=== PATIENT | female | born 1950 | race Caucasian/White ===

== ENCOUNTER 2025-03-21 13:41 | Outpatient (REF) | payer OTHER, SELFPAY ==
--- NOTE | ~2025-03-21 | XR_ITS ---
EXAMINATION: XR LUMBOSACRAL SPINE CLINICAL INFORMATION: M54.50 - Low back pain, unspecified COMPARISON: None available. TECHNIQUE: Lateral views in neutral, flexion and extension position. AP view. FINDINGS: Metallic hardware with transpedicular screws placed bilaterally from L3 to S1. Intervertebral body disc spacer placement at L3-4 and L4-5 level. Dextroconvex rotoscoliosis apex at L1 to. No gross motion during flexion and extension position. Vascular calcifications, aorta.. XR/XR lumbar spine 4V min IMPRESSION: No gross instability. Status post posterior fusion with intact hardware, L3 S1. Scoliosis. Electronically signed by: Kole Chaudhary MD 03/21/2025 03:27 PM EST
== END 2025-03-21 13:42 | disposition home or self-care (01) ==
LOC: HO.HOSX 13:41
PROVIDERS: PCP Family Medicine; Visit Provider Physician Assistant
DX: M54.50 Low back pain, unspecified (principal); G89.29 Other chronic pain; Z98.890 Other specified postprocedural states
CPT/HCPCS: 72110

== ENCOUNTER 2025-03-21 13:41 | Outpatient (AMB) | payer OTHER, SELFPAY ==
--- OUTSIDE RECORDS SUMMARY | 2024-02-23 14:17 | XMS_ITS | Encounter Summary ---
Author Organization [facility] Address [address] [place] [address] Care Team Providers Care Wellness Assistant Name Role Phone Erich Wilson MD Unavailable [phone] Luan Jones MD Unavailable [phone] Mervin Vargas MD Primary Care Provider [phone] Encounter Details Date Type Department Care Team (Late st Contact Info) Description 02/23/2024 3:17 PM EDT Hospital Encounter [facility] [address] [place] [id number] Carlota Webber PA [address], [place] [id number] Social History Tobacco Use Types Packs/Day Years Used Date Smoking Tobacco: Former Cigarettes 0.5 40 0 11/1981 - 11/2021 Smokeless Tobacco: Never Comments:former smoker, .5 p pd x 40 years; quit -2021 has had few from husbands Alcohol Use Standard Drinks/Week Comments Yes 1 (1 standard drink = 0.6 oz pure alcohol) None for past few months, 1 cocktail yesterday. Educated to stop 2 weeks prior to surgery AUDIT-C Answer Date Recorded Q1: How often do you have a drink containing alc ohol? 2-4 times a month 01/24/2022 Q2: How many drinks containi ng alcohol do you have on a typical day when you are drinking? 1 or 2 01/24/2022 Q3: How often do you have si x or more drinks on one occasion? Never 01/24/2022 Comments Unknown Sex and Gender Information Value Date Recorded Sex Assigned at Female 01/08/2025 1:13 PM EDT Legal Sex Female 8:47 AM EST Gender Identity Female 07/05/2021 5:49 PM EST Sexual Orientation Heterosexual (straight) 01/08 1:13 PM EDT documented as of this encounter Plan of Treatment Not on file documented as of this encounter Procedures Procedure Name Priority Date/Time Associated Diagnosis Comments XR CHEST 2 VIEWS STAT 02/23/2024 3:34 PM EDT Acute cough documented in this encounter Results * XR Chest 2 views (02/23/2024 3:34 PM EDT) Anatomical Region Laterality Modality Chest Computed Radiogr aphy 02/23/2024 3:35 PM EDT Impressions 02/23/2024 3:39 PM EDT No acute findings. Narrative 02/23/2024 3:39 PM EDT EXAM: XR CHEST 2 VIEWS on 02/23/2024 3:17 PM CLINICAL HISTORY: acute cough. Eval for pna. COMPARISONS: None TECHNIQUE: Frontal and lateral views of the chest. FINDINGS: There is linear atelectasis or scarring at the left base. No significant pleural effusion or pneumothorax. The cardiomediastinal silhouette is within normal limits. Scoliosis is present. There is partially visualized fixation hardware at the lumbar spine. Procedure Note Heriberto Dalal MD - 02/23/2024 EXAM: XR CHEST 2 VIEWS on 02/23/2024 3:17 PM CLINICAL HISTORY: acute cough. Eval for pna. COMPARISONS: None TECHNIQUE: Frontal and lateral views of the chest. FINDINGS: There is linear atelectasis or scarring at the left base. No significantpleural effusion or pneumothorax. The cardiomediastinal silhouette iswithin normal limits. Scoliosis is present. There is partially visualizedfixation hardware at the lumbar spine. IMPRESSION: No acute findings. us Carlota IBARRA IMG DIAGNOSTIC IMAGING ORDERABLE S Final Result documented in this encounter Visit Diagnoses Not on filedocumented in this encounter Care Teams Wellness Assistant Relationship Specialty Start Date End Date Mervin Vargas MD [address] [facility] [address] [place] [address] PCP - General Internal Medicine 01/01/22 Erich Wilson MD [address] [place] [id number] Physical Medicine and Rehabilitation 08/12/19 Luan Jones MD [address] [place] [id number] Surgery, Orthopedic 10/26/19 documented as of this encounter
--- NOTE | 2025-03-21 13:52 | A.SPINEOV_ITS ---
Vital Signs 03/21/25 13:56 Height 5 ft 8.5 in Weight 153 lb BMI 22.9 Intake Visit Reasons: LBP & left hip Intake Note: Mrs. Hernandez is here today c/o bilateral low back/hip sharp pain. MRI done at [facility]. 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 She is a pleasant 74-year-old female comes in today for evaluation of severe chronic low back pain. She rates her pain as a 5/6 daily, with her pain flaring up to an 8/9 out of 10 with exacerbations. She reports that her back pain is primarily left-sided near the left SI joint, but also will occur in an axial fashion across her back. She states that she attempted to have this treated 2 separate times at [facility]. She had an L4-S1 lumbar fusion in 2019, followed by an L3-4 lumbar fusion in 2021. She reports some modest relief of her low back pain after surgery, however it never fully resolved. She states that her pain is primarily worse with positional changes such as standing up from a seated position. Her pain also flares up with prolonged ambulation/activity. She denies any numbness/tingling/burning associated with the pain, but does state that she has baseline numbness of her toes in the bilateral feet due to a diagnosis of peripheral neuropathy. She has attempted a plethora of nhlz-zei-klgmauw medications including NSAIDs and Tylenol, in his currently prescribed Cymbalta and Neurontin to help mitigate her pain. She has been to multiple rounds of physical therapy for this issue, and also attempted a radiofrequency ablation procedure with a pain management clinic in [place] to try and help treat her pain. Unfortunately these conservative interventions have not been very helpful. PMH: Hx L3-S1 lumbar fusion with posterior instrumentation from L3-S1, interbody spacers L3-4, L4-5. Most recently had L3-4 fusion as extension from previous construct by Dr. Jones in 2021. This surgery was complicated by subsidence of interbody spacer at L4-5. History of appendectomy in 2007, history of small- bowel obstruction in 2019, history of mitral valve prolapse, hypothyroidism, insomnia, hyperlipidemia, obesity, seasonal allergies, peripheral neuropathy. The patient denies any heart attacks, blood clotting, stroke, or pulmonary conditions. She is not on any blood thinners at home. No significant history of infection reported. Social hx: The patient smokes 1/2 pack cigarettes per day. Denies any other substance use. Medications: Levothyroxine, Ambien, atorvastatin, Ozempic, atenolol, Mobic, Cymbalta, Singulair, Zetia, senna, MiraLax, vitamin-D, Neurontin. Allergies: NKDA. Physical exam: The patient has full 5/5 strength in her upper and lower extremities. She ambulates well but does so slightly hunched over. Gait is nonantalgic and non spastic. She rises from a seated position by bracing herself on the chair. She is able to get onto the examination table but does so slowly but without issue. She has no significant sensational deficits to light touch on examination. Her reflexes are slightly diminished in the patella bilaterally but are 2+ normal elsewhere. (+) left side jesse finger test, (-) SI joint compression test. (-) Bilateral straight leg raise, (-) Maxine's, (-) Friedman's, (-) Clonus. Imaging review: MRI of the lumbar spine completed at [facility] on 01/23/2025 shows evidence of L3-S1 lumbar fusion with posterior instrumentation from L3-S1, interbody spacers L3-4, L4-5. There is moderate right-sided and severe left-sided lateral recess stenosis at L2-3. No significant nerve compression appreciated throughout surgical construct L3-S1. Radiology report states that the fusion at L3-4 is new as of 2021. Impression: Diane is a pleasant 74-year-old female who comes in today for evaluation of chronic low back pain that seems to have persisted despite 2 separate lumbar spine fusion surgeries completed at [facility] over the course of the last 5 years. She had several complications after her surgery including what sounds like lucency around her screws indicating they may not have got good purchase or the bone quality was poor, she had a tommy break less than 2 years out from surgery indicating possible pseudoarthrosis causing prolonged tension on her surgical construct. And she also had subsidence of 1 of her interbody spacers. I would like to send her for a CT scan of the lumbar spine to better evaluate her surgical construct in the setting of all of these postoperative complications with her hardware. I did discuss with her that it is possible she may be suffering from left-sided SI joint dysfunction given her increased risk for developing this after having lumbar spine fusion, and the distribution of her pain. I will follow up with her after her CT scan results are read by [facility], she states she would prefer to go there versus having the CT scan done here at [place]. She will drop the disc off with the radiology report when it is complete. Thank you for allowing us to care for your patient. The total time spent with this visit with this patient was 45 minutes reviewing history, physical exam, MRI imaging review, and implementation of treatment plan or further diagnostic testing Med Momin MD,PhD [facility] Orders: Orders XR lumbar spine 4V min Today M54.50 - Low back pain, unspecified Coding Level of Care Code New Pt Level 4 (82595) Diagnoses Lumbago M54.50
[2025-03-21 13:56] VITALS: BMI 22.9
--- OUTSIDE RECORDS SUMMARY | 2025-03-21 16:50 | XMS_ITS | Clinical Summary ---
Author Organization [facility] Address [address] [place] [address] Care Team Providers Care [employer] Remover Name Role Phone Sergey Baez MD Primary Care Provider + Allergies Active Allergy Reactions Criticality Noted Date Comments Nka Medications Medication Sig Dispensed Refills Start Date End Date Status varenicline (CHANTIX) 1 MG tablet 0 11/27/2015 Active zolpidem (AMBIEN) 10 MG tablet TAKE 1 TABLET BY MOUTH AT BEDTIME NEEDED 90 tablet 1 12/03/2017 Active levothyroxine (SYNTHROID, LEVOXYL) tablet 137 mcg TAKE 1 TABLET BY MOUTH EVERY MORNING ON EMPTY STOMACH 90 tablet 1 12/04/2017 Active atorvastatin (LIPITOR) tablet 80 mg TAKE 1 TABLET BY MOUTH ONCE DAILY 90 tablet 1 01/08/2018 Active atenolol (TENORMIN) tablet 25 mg TAKE 1 TABLET BY MOUTH ONCE DAILY 90 tablet 1 01/08/2018 Active Immunizations Name Administration Dates Next Due Influenza Trivalent (Fluzone /Afluria) 5.0mL Multi-dose Vial 04/01/2016 Social History Tobacco Use Types Packs/Day Years Used Date Smoking Tobacco: Every Day Alcohol Use Standard Drinks/Week Comments Yes 1 (1 standard drink = 0.6 oz pur e alcohol) Sex and Gender Information Value Date Recorded Sex Assigned at Not on file Gender Identity Not on file Sexual Orientation Not on file Job Start Date Occupation Industry Not on file Not on file Not on file Last Filed Vital Signs Vital Sign Reading Time Taken Comments Blood Pressure 116/62 02/06/2017 12:58 PM EDT Pulse 72 02/06/2017 12:58 PM EDT Temperature - - Respiratory Rate - - Oxygen Saturation - - Inhaled Oxygen Concentration - - Weight 77.1 kg (170 lb) 02/06/2017 12:58 PM EDT Height - - Body Mass Index - - Plan of Treatment Health Maintenance Due Date Last Done Comments Hepatitis C Screening 1950 COVID-19 Vaccine (#1) 01/07/1951 Pneumococcal Vaccine (1 of 2 - PCV) 1955 Depression Screening 1961 Preventative Health Evaluation 1967 DTap / Tdap / Td (1 - Tdap) 1968 Shingrix-Zoster Vaccine (1 of 2) 1999 Fall Risk Assessment 2014 Osteoporosis Screening (DEXA Scan) 07/10/20142004 Colon Cancer Screening (Colonoscopy) 11/05/2014 11/05/2004 RSV Adult > 60+ Yrs or Pregn ant (1 - 1-dose 75+ series) 2024 Influenza Vaccine (#1) 2025 04/01/2016 Hepatitis B Vaccines Aged Out No long er eligible based on patient's age to complete this topic RSV Ped < 20 months Aged Out No longe r eligible based on patient's age to complete this topic Care Teams [employer] Remover Relationship Specialty Start Date End Date Sergey Baez MD [address] [place], [place] [address] PCP - General Internal Medicine 02/06/17
--- OUTSIDE RECORDS SUMMARY | 2025-03-21 16:50 | XMS_ITS ---
[facility] Name [facility] Organization Unknown Results Test Name/Text Value Interpretation Date Range Source TSH 1.52 uIU/mL Normal 02/14/2025 0.55 - 4.78 [facility] T4 FREE 1.55 ng/dL Normal 02/14/2025 0.89 - 1.76 [facility] MH T4 FREE 1.52 ng/dL Normal 12/09/2024 0.89 - 1.76 [facility] MH TSH 1.52 uIU/mL Normal 12/09/2024 0.55 - 4.78 CTP MM GLYCOHEMOGLOBIN (A1C) 6.0 % Above high normal 10/13/2024 4 - 5.6 [facility] VITAMIN D (25-HYDROXY) 52.0 ng/mL Normal 10/13/2024 30 - 100 [facility] LDL DIRECT MEASUREMENT 74.0 mg/dL Normal 10/13/2024 - 99 [facility] URIC ACID 4.4 mg/dL Normal 10/13/2024 3.7 - 9.2 [facility] GFRE 47.0 Below low normal 10/13/2024 60 - CT PMHM TSH 2.74 uIU/mL Normal 10/13/2024 0.55 - 4.78 CTP MMH MAGNESIUM 2.4 mg/dL Normal 10/13/2024 1.6 - 2.6 [facility] CHOLESTEROL 139.0 mg/dL Normal 10/13/2024 - 200 [facility]P MMH LDL 74.0 mg/dL Normal 10/13/2024 - 160 [facility] HDL 46.0 mg/dL Below low normal 10/13/2024 60 - C [facility] TRIGLYCERIDE 94.0 mg/dL Normal 10/13/2024 - 150 [facility] T4 FREE 1.39 ng/dL Normal 10/13/2024 0.89 - 1.76 [facility] MH CHLORIDE 110.0 mmol/L Above high normal 10/13/2024 98 - 107 [facility] BILIRUBIN,TOTAL 0.5 mg/dL Normal 10/13/2024 0.3 - 1.2 [facility]P MMH A/G RATIO 2.7 g/dL Normal 10/13/2024 [facility] BUN/CREAT.RATIO 17.8 Normal 10/13/2024 [facility]P [facility] ALT (SGPT) 31.0 U/L Normal 10/13/2024 10 - 49 [facility] ALBUMIN 4.6 g/dL Normal 10/13/2024 3.2 - 4.8 [facility] GLUCOSE 107.0 mg/dL Above high normal 10/13/2024 74 - 106 [facility] SODIUM 143.0 mmol/L Normal 10/13/2024 136 - 145 CTPM ALKALINE PHOSPHATASE 62.0 U/L Normal 10/13/2024 45 - 129 [facility] PROTEIN, TOTAL 6.3 g/dL Normal 10/13/2024 5.7 - 8.2 [facility] CREATININE 1.18 mg/dL Above high normal 10/13/2024 0.55 - 1. 02 [facility] CO2 29.0 mmol/L Normal 10/13/2024 20 - 31 [facility] H BUN 21.0 mg/dL Normal 10/13/2024 9 - 23 [facility] POTASSIUM SERUM 5.2 mmol/L Above high normal 10/13/2024 3.5 - 5.1 [facility] GLOBULIN 1.7 g/dL Below low normal 10/13/2024 2.2 - 3.[facility] 25.0 U/L Normal 10/13/2024 0 - 34 [facility] CALCIUM 9.6 mg/dL Normal 10/13/2024 8.7 - 10.4 [facility] PATIENT FASTING? YES Normal 10/13/2024 CT [facility] IMMATURE GRANULOCYTES 0.0 % Normal 10/13/2024 0 - 0.4 5 [facility] MCHC 32.1 g/dL Normal 10/13/2024 31 - 36 [facility] ABSOLUTE IMMATURE GRANULOCYTES 0.0 K/uL Normal 10/13/2024 0 - 0.3 [facility] MCH 34.0 PG Normal 10/13/2024 27 - 34 [facility] NUCLEATED RBC 0.0 % Normal 10/13/2024 0 - 0.2 [facility]H ABSOLUTE GRANULOCYTES 3.0 K/uL Normal 10/13/2024 2.2 - 7 .3 [facility] RBC 4.42 M/uL Normal 10/13/2024 4 - 5.4 [facility] PLATELET COUNT 206.0 K/uL Normal 10/13/2024 150 - 480 [facility] ABSOLUTE NUCLEATED RBC 0.0 K/uL Normal 10/13/2024 0 - 0. 012 [facility] HGB 14.8 g/dL Normal 10/13/2024 12.1 - 15.7 [facility] H HCT 46.1 % Above high normal 10/13/2024 36 - 46 C [facility] MCV 104.0 fL Above high normal 10/13/2024 83 - 102 C [facility] GRANULOCYTES 54.0 % Normal 10/13/2024 23 - 78 [facility] MH ABSOLUTE MONOS 0.7 K/uL Normal 10/13/2024 0.2 - 1.5 CTPM HMMH LYMPHS 28.0 % Normal 10/13/2024 16 - 50 [facility] WBC 5.6 K/uL Normal 10/13/2024 3.7 - 10.3 [facility] ABSOLUTE EOS 0.2 K/uL Normal 10/13/2024 0 - 0.7 [facility] MH ABSOLUTE LYMPHS 1.6 K/uL Normal 10/13/2024 1.5 - 4.9 CTP MHMMH RDW 13.1 % Normal 10/13/2024 11.1 - 13.3 [facility] H EOSINOPHILS 4.0 % Normal 10/13/2024 0 - 6 [facility] H MPV 11.0 fL Normal 10/13/2024 8 - 12 [facility] BASOPHILS 1.0 % Normal 10/13/2024 0 - 2 [facility] MONOCYTES 12.0 % Normal 10/13/2024 0 - 12 [facility] ABSOLUTE BASO 0.1 K/uL Normal 10/13/2024 0 - 0.2 [facility] MMH TSH 2.0 uIU/mL Normal 07/26/2024 0.55 - 4.78 [facility] MH T4 FREE 1.51 ng/dL Normal 07/26/2024 0.89 - 1.76 [facility] TSH 2.21 uIU/mL Normal 06/15/2024 0.55 - 4.78 [facility]P MMH T4 FREE 1.18 ng/dL Normal 06/15/2024 0.89 - 1.76 [facility] T4 FREE 1.13 ng/dL Normal 04/19/2024 [facility].89 [facility] T[facility] 3.41 uIU/mL Normal 04/19/2024 0.55 - 4.78 CTP MM LDL DIRECT MEASUREMENT 70.0 mg/dL Normal 04/19/2024 0 - 9 9 [facility] BILIRUBIN,TOTAL 0.4 mg/dL Normal 04/19/2024 0.3 - 1.2 CTP MMH ALKALINE PHOSPHATASE 58.0 U/L Normal 04/19/2024 45 - 129 [facility] GLOBULIN 2.3 g/dL Normal [facility] PROTEIN, TOTAL 6.4 g/dL Normal 04/19/2024 5.7 - 8.2 [facility] ALBUMIN 4.1 g/dL Normal 04/19/2024 3.2 - 4.8 [facility] ALT (SGPT) 36.0 U/L Normal 04/19/2024 10 - 49 [facility] A/G RATIO 1.8 g/dL Normal [facility]CREAT.RAT[facility] 16.5 Normal 04/19/2024 [facility] AST (SGOT) 25.0 U/L Normal 04/19/2024 0 - 34 [facility] BUN 18.0 mg/dL Normal 04/19/2024 9 - 23 [facility] CREATININE 1.09 mg/dL Above high normal 04/19/2024 0.55 - 1. 02 [facility] GLUCOSE 101.0 mg/dL Normal 04/19/2024 74 - 106 [facility] H CALCIUM 9.3 mg/dL Normal 04/19/2024 8.7 - 10.4 [facility] CO2 29.0 mmol/L Normal 04/19/2024 20 - 31 [facility] H POTASSIUM SERUM 4.8 mmol/L Normal 04/19/2024 3.5 - 5.1 CT HMM[facility] SODIUM 143.0 mmol/L Normal 04/19/2024 136 - 145 [facility] CHLORIDE 108.0 mmol/L Above high normal 04/19/2024 98 - 107 [facility] PATIENT FASTING? YES Normal 04/19/2024 CT PM[facility] URIC ACID 4.0 mg/dL Normal 04/19/2024 3.7 - 9.2 [facility] VITAMIN D (25-HYDROXY) 67.0 ng/mL Normal 04/19/2024 30 - 100 [facility] CHOLESTEROL 141.0 mg/dL Normal 04/19/2024 0 - 200 [facility]P MMH LDL 66.0 mg/dL Normal 04/19/2024 - 160 [facility] TRIGLYCERIDE 119.0 mg/dL Normal 04/19/2024 15 - 149 [facility] HDL 51.0 mg/dL Normal 04/19/2024 40 - 60 [facility] MAGNESIUM 2.33 mg/dL Normal 04/19/2024 1.6 - 2.6 [facility]MM GLYCOHEMOGLOBIN (A1C) 5.9 % Above high normal 04/19/2024 4 - 5.6 [facility] RDW 13.2 % Normal 04/19/2024 11.1 - 13.3 [facility] H MCH 34.0 PG Normal 04/19/2024 27 - 34 [facility] WBC 6.9 K/uL Normal 04/19/2024 3.7 - 10.3 [facility] ABSOLUTE EOS 0.3 K/uL Normal 04/19/2024 [facility] LY[facility] 2.1 K/uL Normal 04/19/2024 1.5 - 4.9 CTP MM MPV 11.0 fL Normal 04/19/2024 8 - 12 [facility] ABSOLUTE GRANULOCYTES 3.7 K/uL Normal 04/19/2024 2.2 - 7 .3 [facility] ABSOLUTE BASO 0.1 K/uL Normal 04/19/2024 0 - 0.2 [facility] MMH MCHC 32.7 g/dL Normal 04/19/2024 31 - 36 [facility] HCT 44.3 % Normal 04/19/2024 36 - 46 [facility] BASOPHILS 1.0 % Normal 04/19/2024 0 - 2 [facility] IMMATURE GRANULOCYTES 1.0 % Above high normal 04/19/2024 0 - 0.45 [facility] MCV 105.0 fL Above high normal 04/19/2024 83 - 102 C [facility] GRANULOCYTES 53.0 % Normal 04/19/2024 23 - 78 [facility] MH LYMPHS 30.0 % Normal 04/19/2024 16 - 50 [facility] MONOCYTES 11.0 % Normal 04/19/2024 0 - 12 [facility] RBC 4.24 M/uL Normal 04/19/2024 4 - 5.4 [facility] NUCLEATED RBC 0.0 % Normal 04/19/2024 0 - 0.2 [facility] MMH ABSOLUTE NUCLEATED RBC 0.0 K/uL Normal 04/19/2024 0 - 0. 012 [facility] EOSINOPHILS 4.0 % Normal 04/19/2024 0 - 6 [facility] H ABSOLUTE IMMATURE GRANULOCYTES 0.0 K/uL Normal 04/19/2024 0 - 0.3 [facility] ABSOLUTE MONOS 0.8 K/uL Normal 04/19/2024 0.2 - 1.5 CTPM HMMH PLATELET COUNT 203.0 K/uL Normal 04/19/2024 150 - 480 CTP MHMMH HGB 14.5 g/dL Normal 04/19/2024 12.1 - 15.7 [facility]MM H TSH 0.1 uIU/mL Below low normal 12/31/2023 0.35 - 4.5 [facility] T4 FREE 1.55 ng/dL Above high normal 12/31/2023 0.6 - 1.38 [facility] T4 FREE 1.5 ng/dL Above high normal 11/09/2023 0.6 - 1.38 [facility] TSH 0.07 uIU/mL Below low normal 11/09/2023 0.35 - 4.5 [facility] LIPASE 28.0 U/L Normal 10/19/2023 13 - 75 [facility] GFRE 57.0 Below low normal 10/19/2023 60 - CT PMHMM[facility] A/G RATIO 1.3 g/dL Normal 10/19/2023 [facility] BUN/CREAT.RATIO 18.8 Normal 10/19/2023 CTP MHMMH POTASSIUM SERUM 4.1 mmol/L Normal 10/19/2023 3.5 - 5.1 CT PMHMMH GLUCOSE 78.0 mg/dL Normal 10/19/2023 74 - 100 [facility] CHLORIDE 105.0 mmol/L Normal 10/19/2023 98 - [facility] CREATININE 1.01 mg/dL Normal 10/19/2023 0.55 - 1.3 [facility] CO2 25.0 mmol/L Normal 10/19/2023 21 - [facility] ALB[facility] 3.7 g/dL Normal 10/19/2023 3.4 - 5 [facility] AST (SGOT) 13.0 U/L Below low normal 10/19/2023 15 - 37 [facility] ALT (SGPT) 22.0 U/L Normal 10/19/2023 12 - 78 [facility] GLOBULIN 2.8 g/dL Normal 10/19/2023 2.4 - 4.2 [facility] PROTEIN, TOTAL 6.5 g/dL Normal 10/19/2023 6.4 - 8.2 [facility] BILIRUBIN,TOTAL 0.7 mg/dL Normal 10/19/2023 0.2 - 1 [facility] ALKALINE PHOSPHATASE 68.0 U/L Normal 10/19/2023 50 - 136 [facility] BUN 19.0 mg/dL Above high normal 10/19/2023 7 - 18 [facility] SODIUM 138.0 mmol/L Normal 10/19/2023 136 - 145 [facility] PATIENT FASTING? UNKNOWN Normal 10/19/2023 CT [facility] WBC 8.6 K/uL Normal 10/19/2023 3.7 - 10.3 [facility] ABSOLUTE NUCLEATED RBC 0.0 K/uL Normal 10/19/2023 0 - 0. 012 [facility] NUCLEATED RBC 0.0 % Normal 10/19/2023 0 - [facility] ABSOLUTE IMMATURE GRANULOCYTES 0.0 K/uL Normal 10/19/2023 0 - 0.3 [facility] RDW 12.0 % Normal 10/19/2023 11.1 - 13.[facility] MCHC 34.1 g/dL Normal 10/19/2023 31 - 36 [facility] BASOPHILS 1.0 % Normal 10/19/2023 0 - 2 [facility] GRANULOCYTES 67.0 % Normal 10/19/2023 23 - 78 [facility] MH IMMATURE GRANULOCYTES 1.0 % Above high normal 10/19/2023 0 - 0.45 [facility] ABSOLUTE BASO 0.1 K/uL Normal 10/19/2023 0 - 0.2 [facility] MMH MCV 98.0 fL Significant cardenas ge down 10/19/2023 83 - 102 [facility] LYMPHS 21.0 % Normal 10/19/2023 16 - 50 [facility] HCT 41.4 % Normal 10/19/2023 36 - 46 [facility] ABSOLUTE GRANULOCYTES 5.8 K/uL Normal 10/19/2023 2.2 - 7 .3 [facility] MCH 33.0 PG Normal 10/19/2023 27 - 34 [facility] MONOCYTES 10.0 % Normal 10/19/2023 0 - 12 [facility] ABSOLUTE LYMPHS 1.8 K/uL Normal 10/19/2023 1.5 - 4.9 CTP MHMMH ABSOLUTE MONOS 0.9 K/uL Normal 10/19/2023 0.2 - 1.5 CTPM HMMH RBC 4.22 M/uL Normal 10/19/2023 4 - 5.4 [facility] PLATELET COUNT 195.0 K/uL Normal 10/19/2023 150 - 480 CTP MHMMH MPV 10.0 fL Normal 10/19/2023 8 - 12 [facility] ABSOLUTE EOS 0.1 K/uL Normal 10/19/2023 0 - 0.7 [facility] MH EOSINOPHILS 2.0 % Normal 10/19/2023 0 - 6 [facility]PM[facility]MM H HGB 14.1 g/dL Normal 10/19/2023 12.1 - 15.7 [facility]PM[facility]MM H T4 FREE 1.14 ng/dL Normal 08/12/2023 0.6 - 1.38 [facility]MM H TSH 5.78 uIU/mL Above high normal 08/12/2023 0.35 - 4. 5 [facility] MAGNESIUM 2.5 mg/dL Above high normal 04/15/2023 1.8 - 2.4 C TPMHMMH VITAMIN D (25-HYDROXY) 76.3 ng/mL Normal 04/15/2023 30 - 100 [facility] POTASSIUM SERUM 4.9 mmol/L Normal 04/15/2023 3.5 - 5.1 CT PM[facility]MM[facility] BILIRUBIN,TOTAL 0.5 mg/dL Normal 04/15/2023 0.2 - 1 CTP MMH A/G RATIO 1.5 g/dL Normal 04/15/2023 [facility] CHLORIDE 106.0 mmol/L Normal 04/15/2023 98 - [facility] GLOBULIN 2.5 g/dL Normal 04/15/2023 2.4 - 4.2 [facility] ALT (SGPT) 46.0 U/L Normal 04/15/2023 12 - 78 [facility] CO2 30.0 mmol/L Normal 04/15/2023 21 - 32 [facility]PMM H SODIUM 142.0 mmol/L Normal 04/15/2023 136 - [facility] PROTEIN, TOTAL 6.3 g/dL Below low normal 04/15/2023 6.4 - 8 .2 [facility] AST (SGOT) 20.0 U/L Normal 04/15/2023 15 - 37 [facility] ALKALINE PHOSPHATASE 57.0 U/L Normal 04/15/2023 50 - 136 [facility] GLUCOSE 102.0 mg/dL Above high normal 04/15/2023 74 - 100 [facility] BUN/CREAT.RATIO 18.1 Normal 04/15/2023 [facility] BUN 21.0 mg/dL Above high normal 04/15/2023 7 - 18 [facility] CALCIUM 9.2 mg/dL Normal 04/15/2023 8.5 - 10.1 [facility] CREATININE 1.16 mg/dL Normal 04/15/2023 0.55 - 1.3 [facility] ALBUMIN 3.8 g/dL Normal 04/15/2023 3.4 - 5 [facility]ST[facility]? YES Normal 04/15/[facility] URIC ACID 3.9 mg/dL Normal 04/15/2023 2.6 - 6 CTPMM TSH 0.71 uIU/mL Normal 04/15/2023 0.35 - 4.5 [facility] LDL DIRECT MEASUREMENT 62.0 mg/dL Normal 04/15/2023 - 160 [facility] TRIGLYCERIDE 81.0 mg/dL Normal 04/15/2023 - 150 [facility] HDL 50.0 mg/dL Normal 04/15/2023 - [facility] LDL 57.0 Normal 04/15/2023 0 - 129 [facility] CHOLESTEROL 123.0 mg/dL Normal 04/15/2023 - 200 [facility] MMH GFRE 49.0 Below low normal 04/15/2023 60 - CT PMHMMH T4 FREE 1.2 ng/dL Normal 04/15/2023 0.6 - 1.38 [facility] GLYCOHEMOGLOBIN (A1C) 5.8 % Above high normal 04/15/2023 4 - 5.6 [facility] ABSOLUTE GRANULOCYTES 4.1 K/uL Normal 04/15/2023 2.2 - 7 .3 [facility] MONOCYTES 11.0 % Normal 04/15/2023 0 - 12 [facility] MPV 11.0 fL Normal 04/15/2023 8 - 12 [facility] LYMPHS 27.0 % Normal 04/15/2023 16 - 50 [facility] EOSINOPHILS 3.0 % Normal 04/15/2023 0 - 6 [facility]MM H IMMATURE GRANULOCYTES 0.0 % Normal 04/15/2023 0 - 0.4 5 [facility] GRANULOCYTES 58.0 % Normal 04/15/2023 23 - 78 [facility] MH MCHC 32.9 g/dL Normal 04/15/2023 31 - 36 [facility] MCH 34.0 PG Normal 04/15/2023 27 - 34 [facility] WBC 7.0 K/uL Normal 04/15/2023 3.7 - 10.3 [facility] BASOPHILS 1.0 % Normal 04/15/2023 0 - 2 [facility] HCT 41.7 % Normal 04/15/2023 36 - 46 [facility] HGB 13.7 g/dL Normal 04/15/2023 12.1 - 15.7 CTPMHMM H PLATELET COUNT 188.0 K/uL Normal 04/15/2023 150 - 480 CTP MHMMH ABSOLUTE IMMATURE GRANULOCYTES 0.0 K/uL Normal 04/15/2023 0 - 0.3 [facility] ABSOLUTE BASO 0.1 K/uL Normal 04/15/2023 0 - 0.2 [facility] MMH MCV 105.0 fL Above high normal 04/15/2023 83 - 102 C [facility]MMH RBC 3.99 M/uL Below low normal 04/15/2023 4 - 5.4 CT [facility] ABSOLUTE MONOS 0.8 K/uL Normal 04/15/2023 0.2 - 1.5 CTPM HMMH ABSOLUTE EOS 0.2 K/uL Normal 04/15/2023 0 - 0.7 [facility] MH RDW 12.1 % Normal 04/15/2023 11.1 - 13.3 [facility]PMHMM H NUCLEATED RBC 0.0 % Normal 04/15/2023 0 - 0.2 [facility] MMH ABSOLUTE LYMPHS 1.9 K/uL Normal 04/15/2023 1.5 - 4.9 CTP MHMMH ABSOLUTE NUCLEATED RBC 0.0 K/uL Normal 04/15/2023 0 - 0. 012 [facility] History of Medication Use Medication Directions Dispensed Refills Start Date End Date Stat albuterol (PROVENTIL HFA; VENTOLIN HFA) 108 (90 Base) MCG/ACT inhaler Inhale 2 puffs every 4 (four) hours as needed for wheezing or shortness of breath. 02/23/2024 active predniSONE (DELTASONE) 20 MG tablet Take 2 tablets (40 mg total) by mouth daily. 02/23/2024 active zolpidem (AMBIEN) 10 MG tablet 02/22/2024 active gabapentin (NEURONTIN) 300 MG capsule Take 400 mg by mouth 4 (four) times a day. 12/21/2023 active meloxicam (MOBIC) 15 MG tablet Take 15 mg by mouth. with food 12/21/2023 active montelukast (SINGULAIR) 10 MG tablet Take 10 mg by mouth nightly. 12/07/2023 active valACYclovir (VALTREX) 1000 MG tablet Take 1 tablet (1,000 mg total) by mouth 2 (two) times a day. 07/02/2023 2023 active acetaminophen (TYLENOL) 325 MG tablet Take 3 tablets (975 mg total) by mouth every 6 (six) hours. 01/26/2022 active aspirin enteric coated (aspirin enteric coated) 81 MG EC tablet Take 1 tablet (81 mg total) by mouth 2 (two) times a day. 01/26/2022 active lactulose (ENULOSE) 10 gm/15 mL solution Take 30 mL (20 g total) by mouth every 4 (four) hours as needed (if no bowel movment by day 3). 01/26/2022 active methocarbamol (ROBAXIN) 750 MG tablet Take 1 tablet (750 mg total) by mouth 4 times daily (every 6 hours) as needed for muscle spasms. 01/26/2022 active oxyCODONE (ROXICODONE) 5 MG immediate release tablet Take 1-2 tablets (5-10 mg total) by mouth every 3 (three) hours as needed for severe pain or moderate pain. Max Daily Amount: 80 mg 01/26/2022 active polyethylene glycol (miraLAx) 17 g packet Take 1 packet (17 g total) by mouth daily as needed for constipation. 01/26/2022 active senna-docusate (SENNA-S) 8.6-50 MG Take 2 tablets by mouth nightly. 01/26/2022 active OMEprazole (PriLOSEC) 40 MG capsule TAKE 1 CAPSULE BY MOUTH DAILY, 1/2 HOUR BEFORE BREAKFAST 11/13/2021 active Ozempic, 1 MG/DOSE, 4 MG/3ML Solution Pen-injector prefilled pen injection Inject 1 mg under the skin once a week. 09/09/2021 active atenolol (TENORMIN) 25 MG tablet Take 25 mg by mouth every morning. 07/15/2019 active atorvastatin (LIPITOR) 80 MG tablet Take 80 mg by mouth nightly. 07/15/2019 active CALCIUM-VITAMIN D PO Take 1 tablet by mouth every morning. active docusate sodium (COLACE) 100 MG capsule Take 100 mg by mouth 2 (two) times a day as needed for constipation. active levothyroxine (SYNTHROID, LEVOTHROID) 100 MCG tablet Take 100 mcg by mouth daily on an empty stomach. active levothyroxine (SYNTHROID, LEVOTHROID) 125 MCG tablet Take 125 mcg by mouth daily on an empty stomach. 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 ProblemAct [facility] Chronic bilateral low back pain with bilateral sciatica active 2021-12-03 ProblemAct [facility] Spinal stenosis active 2022-01-24 ProblemAct [facility] History of lumbar fusion active 2021-12-03 ProblemAct [facility] Spondylosis of cervical region without myelopathy or radiculopathy active EncounterDiagnosisAct [facility] 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 02/14/2025 Ambulatory [place] [facility] 01/10/2025 Ambulatory [place] [facility] 01/10/2025 [facility] 12/09/2024 [facility] 10/13/2024 [facility]. 07/26/2024 [facility] 06/14/2024 Ambulatory HYPERLIPIDEMIA HYPERLIPIDEMIA [facility] 05/05/2024 [facility], [facility]. 04/19/2024 Ambulatory [place] [facility] 02/23/2024 Ambulatory Other Other [place] [facility] 02/23/2024 Ambulatory SCREENING FOR BREAST CA SCREENING FOR BREAST CA [facility] 01/28/2024 [facility] 12/31/2023 [facility], [facility]. 11/09/2023 Emergency SEVERE STOMACH PAIN/NO BM/NO GAS SEVERE STOMACH PAIN/NO BM/NO GAS [facility]. 10/18/2023 [facility], [facility]. 08/12/2023 Ambulatory Other herpesviral infection Other herpesviral infection [place] [facility] 07/02/2023 [facility] 04/15/2023 [facility], [facility]. 03/05/2023 Ambulatory Low back pain, unspecified Low back pain, unspecified [facility] 01/23/2023 Ambulatory Low back pain, unspecified Low back pain, unspecified [facility] 01/23/2023 [facility] 10/29/2022 [facility] 08/15/2022 [facility] 06/18/2022 [facility] 04/29/2022 Ambulatory [facility] 01/27/2022 Inpatient Spinal stenosis, lumbar region with neurogenic claudication [facility] 01/24/2022 Ambulatory Encounter for ot her preprocedural examination [facility] 01/22/2022 Ambulatory Spinal stenosis, lumbar region with neurogenic claudication [facility] 01/06/2022 Ambulatory Unspecified frac ture of unspecified lumbar vertebra, subsequent encounter for fracture with nonunion [facility] 12/17/2021 Ambulatory Lumbago with sciatica, left side [facility] 12/03/2021 Care Team Organization Name Specialty Phone Email Start Date End [facility] te [facility] 03/09/2025 [facility] 03/07/2025 [facility] 03/07/2025 [facility] MERVIN CELIS [facility] 03/06/2025 [facility] 12/10/2024 03/15/2025 [facility] 09/28/2024 025 [facility] Logger ([facility]) VIMAL Primary Care 09/14/2024 [facility] Mervin Celis [facility] 01/26/2024 09/27/2024 [facility] M[facility]in [facility] 01/26/2024 [facility]in Cel[facility] Primary [facility] 01/23/2023 [facility] 06/18/2022 023 [facility] Vimal Jeffries Primary Care 04/29/2022 03/15/2025 [facility] Mervin Celis Primary Care 03/28/2022 01/04/20 24 [facility] Charlie Frank Primary [facility] 01/24/2022 [facility] Charlie Frank [facility] 12/03/2021 [facility] Mervin Celis Primary Care 12/03/2021 01/24/2022
--- OUTSIDE RECORDS SUMMARY | 2025-03-21 16:50 | XMS_ITS | Encounter Summary ---
Author Organization [facility] Address [address] [place] [address] Care Team Providers Care Rail Loader Name Role Phone Erich Wilson MD Unavailable [phone] Luan Jones MD Unavailable [phone] Mervin Vargas MD Primary Care Provider [phone] Encounter Details Date Type Department Care Team (Late st Contact Info) Description 01/10/2025 Scanned Document [facility] [address] [place] [id number] Erich Wilson MD [address] [place] [address] [address] [place], [place] [id number] Social History Tobacco Use Types Packs/Day Years [...] on file documented as of this encounter Visit Diagnoses Not on filedocumented in this encounter Care Teams Rail Loader Relationship Specialty Start Date End Date Mervin Vargas MD [address] [place], [place] [id number] PCP - General Internal Medicine 01/01/22 Erich Wilson MD [address] [place] [address] Physical Medicine and Rehabilitation 08/12/19 Luan Jones MD [address] [place] [address] Surgery, Orthopedic 10/26/19 documented as of this encounter
--- OUTSIDE RECORDS SUMMARY | 2025-03-21 16:50 | XMS_ITS | Clinical Summary ---
Author Organization [facility] Address [address] [place] [address] Care Team Providers Care Health Information Managers Name Role Phone Erich Wilson MD Unavailable [phone] Luan Jones MD Unavailable [phone] Mervin Vargas MD Primary Care Provider [phone] Allergies Active Allergy Reactions Criticality Noted Date Comments Nickel Rash/Dermatitis Low 10/26/2019 Medications atenolol (TENORMIN) 25 MG tablet Take 25 mg by mouth every morning. 0 Active atorvastatin (LIPITOR) 80 MG tablet Take 80 mg by mouth nightly. 0 Active Ozempic, 1 MG/DOSE, 4 MG/3ML Solution Pen-injector prefilled pen injectionIndicati ons:Weight Loss Inject 1 mg under the skin once a week. 2 Active OMEprazole (PriLOSEC) 40 MG capsule TAKE 1 CAPSULE BY MOUTH DAILY, 1/2 HOUR BEFORE BREAKFAST 2 Active docusate sodium (COLACE) 100 MG capsule Take 100 mg by mouth 2 (two) times a day as needed for constipation. Active CALCIUM-VITAMIN D PO Take 1 tablet by mouth every morning. Active levothyroxine (SYNTHROID, LEVOTHROID) 125 MCG tablet Take 125 mcg by mouth daily on an empty stomach. Take morning of surgery Active polyethylene glycol (miraLAx) 17 g packetIndications :Spinal stenosis of lumbar region with neurogenic claudication Take 1 packet (17 g total) by mouth daily as needed for constipation. 14 packet 2 Active acetaminophen (TYLENOL) 325 MG tabletIndications :Spinal stenosis of lumbar region with neurogenic claudication Take 3 tablets (975 mg total) by mouth every 6 (six) hours. 144 tablet 2 Active lactulose (ENULOSE) 10 gm/15 mL solutionIndicatio ns:Spinal stenosis of lumbar region with neurogenic claudication Take 30 mL (20 g total) by mouth every 4 (four) hours as needed (if no bowel movment by day 3). 240 mL 2 Active methocarbamol (ROBAXIN) 750 MG tabletIndications :Spinal stenosis of lumbar region with neurogenic claudication Take 1 tablet (750 mg total) by mouth 4 times daily (every 6 hours) as needed for muscle spasms. 40 tablet 2 Active oxyCODONE (ROXICODONE) 5 MG immediate release tabletIndications :Spinal stenosis of lumbar region with neurogenic claudication Take 1-2 tablets (5-10 mg total) by mouth every 3 (three) hours as needed for severe pain or moderate pain. Max Daily Amount: 80 mg 42 tablet 2 Active senna-docusate (SENNA-S) 8.6-50 MGIndications:Spi nal stenosis of lumbar region with neurogenic claudication Take 2 tablets by mouth nightly. 60 tablet 2 Active aspirin enteric coated (aspirin enteric coated) 81 MG EC tabletIndications :Spinal stenosis of lumbar region with neurogenic claudication Take 1 tablet (81 mg total) by mouth 2 (two) times a day. 56 tablet 2 Active gabapentin (NEURONTIN) 300 MG capsule Take 400 mg by mouth 4 (four) times a day. 4 Active levothyroxine (SYNTHROID, LEVOTHROID) 100 MCG tablet Take 100 mcg by mouth daily on an empty stomach. Active zolpidem (AMBIEN) 10 MG tablet 4 Active montelukast (SINGULAIR) 10 MG tablet Take 10 mg by mouth nightly. 4 Active meloxicam (MOBIC) 15 MG tablet Take 15 mg by mouth. with food 4 Active albuterol (PROVENTIL HFA; VENTOLIN HFA) 108 (90 Base) MCG/ACT inhalerIndication s:Acute bronchitis, unspecified organism Inhale 2 puffs every 4 (four) hours as needed for wheezing or shortness of breath. 1 each 4 Active predniSONE (DELTASONE) 20 MG tabletIndications :Acute bronchitis, unspecified organism Take 2 tablets (40 mg total) by mouth daily. 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 Encounters Date Type Department Care Team Description 03/07/2025 1:45 PM EDT Office Visit Orthopedic [address] [phone] Erich Wilson MD Degeneration of intervertebral disc of lumbosacral region with discogenic back pain (Primary Dx); Spondylosis of cervical region without myelopathy or radiculopathy 01/10/2025 10:40 AM EDT Ancillary Procedure Orthopedic [address] [phone] 01/10/2025 10:30 AM EDT Consult Orthopedic [address] [phone] Erich Wilson MD Degeneration of intervertebral disc of lumbosacral region with discogenic back pain (Primary Dx); Hip pain, right; Hip pain, left; Spondylosis of cervical region without myelopathy or radiculopathy; Lumbar pain 01/10/2025 Scanned Document [facility] [address] [place] [address] Erich Wilson MD from Last 3 Months Family History Medical History Relation Name Comments No Known Problems Daughter Heart attack Father Heart disease Father Lung cancer Mother Arthritis Sister No Known Problems Son Relation Name Status Comments Daughter Alive Father Mother Sister Alive Son Alive Social History Tobacco Use Types Packs/Day Years Used Date Smoking Tobacco: Former Cigarettes 0.5 40 0 11/1981 - 11/2021 Smokeless Tobacco: Never Tobacco Cessation:Counseling Given: Yes Comments:former smoker, .5 ppd x 40 years; quit has had few from husbands Alcohol Use [...] Orientation Heterosexual (straight) 01/08 1:13 PM EDT Last Filed Vital Signs Vital Sign Reading Time Taken Comments Blood Pressure 116/72 02/23/2024 3:09 PM EDT Pulse 78 02/23/2024 3:09 PM EDT Temperature 36.6 C (97.9 F) 02/23/2024 3:09 PM EDT Respiratory Rate 16 02/23/2024 3:09 PM EDT Oxygen Saturation 94% 02/23/2024 3:09 PM EDT Inhaled Oxygen Concentration - - Weight 70.3 kg (155 lb) 02/23/2024 3:09 PM EDT Height 177.8 cm (5' 10 ) 02/23/2024 3:09 PM EDT Body Mass Index 22.24 02/23/2024 3:09 PM EDT Plan of Treatment Health Maintenance Due Date Last Done Comments Advance Care Planning 1950 Hepatitis C Virus Screening 1950 DTaP/Tdap/Td Vaccines (1 - Tdap) 1968 Mammogram 1989 Colonoscopy 1994 Lung Cancer Screening (LDCT) 1999 Pneumococcal Vaccines 50+ (1 of 1 - PCV) 1999 Zoster (Shingles) Vaccine (1 of 2) 1999 DXA Bone Density (Females,Ages 65 and older) 2014 RSV Vaccine 50 years and older and Patients (1 - 1-dose 75+ series) 2024 Influenza Vaccine 12/16/2024 04/07/2022, , 03/29/2020, Additional history exists COVID-19 Vaccine ( season) 2025 08/08/2020, 07/11/2020 Chronic Controlled Substance User PDMP Review Discontinued 12/31/2021, 12/17/2021, 12/03/2021, Additional history exists Hepatitis B Vaccines Aged Out No long er eligible based on patient's age to complete this topic Medical Devices Implanted Type Area Tag Clerk Device Identifier Shelf Expiration Date Model / Serial / Lot [id number] Cage Spinal [id number] Modl 10d Xl Sterl Lf - [id number] Implanted:Qty : 1 on 01/24/2022 by Luan Jones MD at [facility] Cage N/A: Spine Lumbar [employer] 09/24/2026 [id number] / / [id number] Blake Spinal 80mm 5.5mm Creo Crv Ti Nonst - [id number] Implanted:Qty : 2 on 12/14/2019 by Luan Jones MD at [facility] Nail/Blake N/A: Spine Lumbar [employer] 1119.7080 / / [id number] Cap Locking Creo Spinal Thrd Nonst - [id number] Implanted:Qty : 6 on 12/14/2019 by Luan Jones MD at [facility] Spine N/A: Spine Lumbar [employer] 1119.0010 / / [id number] Screw Bone Spine Creo Creo Amp 5.5mm Pa Tulip Nonst Lf - [id number] Implanted:Qty : 6 on 12/14/2019 by Luan Jones MD at [facility] Spine N/A: Spine Lumbar [employer] 1119.0110 / / [id number] Screw Bone Spine Creo Amp 50mm 7.5mm Delta Lundy Nonst Lf - [id number] Implanted:Qty : 4 on 12/14/2019 by Luan Jones MD at [facility] Spine N/A: Spine Lumbar [employer] 1067.4750 / / [id number] Screw Bone Spine Creo Amp 45mm 7.5mm Delta Lundy Nonst Lf - [id number] Implanted:Qty : 2 on 12/14/2019 by Luan Jones MD at [facility] Spine N/A: Spine Lumbar [employer] 1067.4745 / / 1119.0010 Cap Locking Creo Spinal Thrd Nonst - [id number] Implanted:Qty : 8 on 01/24/2022 by Luan Jones MD at [facility] Spine N/A: Spine Lumbar [employer] 1119.0010 / / [id number] Creo Amp 5.5mm Pa Tulip Thrd Nonst Lf - [id number] Implanted:Qty : 3 on 01/24/2022 by Luan Jones MD at [facility] Spine N/A: Spine Lumbar [employer] 1119.0110 / / [id number] Screw Bone Spine Creo Amp 45mm 6.5mm Delta Lundy Nonst Lf - [id number] Implanted:Qty : 2 on 01/24/2022 by Luan Jones MD at [facility] Spine N/A: Spine Lumbar [employer] 1067.4645 / / [id number] Screw Bone Spine Creo Amp 50mm 7.5mm Delta Lundy Nonst Lf - [id number] Implanted:Qty : 1 on 01/24/2022 by Luan Jones MD at [facility] Spine N/A: Spine Lumbar [employer] 1067.4750 / / [id number] Graft Bone 23mm 14mm Infs Sm Spine Rhbmp-2 Bvn Collagen - [id number] Implanted:Qty : 1 on 01/24/2022 by Luan Jones MD at [facility] Tissue N/A: Spine Lumbar [employer]IVE T 02/15/2024 [id number] / / [id number] Substitute Bone Graft Ms Grft Matrix Block Void Filler 20ml - [id number] Implanted:Qty : 1 on 12/14/2019 by Luan Jones MD at [facility] Void Filler N/A: Spine Lumbar [employer] T 04/16/2022 [id number] / / [id number] Filler Bone Void 1cc Dbx Algrf Frzdr Putty - [id number] Implanted:Qty : 1 on 12/14/2019 by Luan Jones MD at [facility] Void Filler N/A: Spine Lumbar [employer] 06/22/2021 [id number] / [id number] / [id number] Filler Bone Void 5cc Dbx Algrf Putty Frzdr - [id number] Implanted:Qty : 1 on 01/24/2022 by Luan Jones MD at [facility] Void Filler N/A: Spine Lumbar [employer] 09/14/2023 [id number] / [id number] / [id number] Substitute Bone Graft Ms Grft Matrix Block Void Filler 20ml - [id number] Implanted:Qty : 1 on 01/24/2022 by Luan Jones MD at [facility] Void Filler N/A: Spine Lumbar [employer] MIN[employer] T 09/14/2024 [id number] / / [id number] Filler Bone Void 30cc 1.7-10mm Canc Algrf Chp Frzdr - [id number] Implanted:Qty : 1 on 01/24/2022 by Luan Jones MD at [facility] Void Filler N/A: Spine Lumbar [employer] 07/23/2024 [id number] / [id number] / Rise Spacer Implanted:Qty : 1 on 12/14/2019 by Luan Jones MD at [facility] N/A: Spine Lumbar [employer] 193.102 / / 5.5 Curved Blake 110 Mm Implanted:Qty : 2 on 01/24/2022 by Luan Jones MD at [facility] N/A: Spine Lumbar [employer] 124.611 / / Procedures Procedure Name Priority Date/Time Associated Diagnosis Comments MRI LUMBAR SPINE W/O CONTRAST Routine 01/23/2025 5:23 PM EDT Lumbar pain XR LUMBAR SPINE COMPLETE 4+ VIEWS Routine 01/10/2025 10:45 AM EDT Degeneration of intervertebral disc of lumbosacral region with discogenic back pain XR CERVICAL SPINE 4 OR 5 VIEWS Routine 01/10/2025 10:45 AM EDT Spondylosis of cervical region without myelopathy or radiculopathy XR HIPS W PELVIS 3 OR 4 VIEWS-BILATERAL Routine 01/10/2025 10:45 AM EDT Hip pain, right Hip pain, left from Last 3 Months Results * MRI Lumbar spine w/o contrast (01/23/2025 5:23 PM EDT) Anatomical Region Laterality Modality L-spine Magnetic Resonan ce 01/23/2025 4:45 PM EDT 01/23/2025 4:45 PM EDT Impressions 01/23/2025 6:52 PM EDT 1. Since the previous examination, patient is status post instrumented fusion at L3/4. The dimensions of the central canal are significantly improved when compared to the preoperative study. 2. There is mild posterior displacement of the intradiscal spacer device at L4/5 in a right paracentral location. There is no obvious direct neural compromise. 3. Multilevel degenerative disc, bone and facet changes as described above. Surgical changes at L5/S1 and right subarticular zone and foraminal compromise are similar to the previous examination. Electronically signed by: Mervin Scott MD 01/23/2025 06:52 PM EDT Thank you for referring your patient to us, Mervin Scott M.D. [id number] (Electronically Signed - 01/23/2025 18:52) Copy: PATIENT , Narrative 01/23/2025 6:52 PM EDT HISTORY: Low back pain history of previous lumbar surgery COMPARISON: 11/14/2021 EXAMINATION: Routine lumbosacral spine protocol without gadolinium. RESULTS: Counting reference: Lumbosacral junction. For the purposes of this report, L4/5 is considered the level of the iliac crest and L5 is the last lumbar like vertebral body. Alignment: There is a mild levoscoliosis. There is evidence of a laminectomy L3-L5/S1. There are bilateral pedicle screws noted from L3 through S1 and evidence of intradiscal spacers/fusion devices at L3/4 and L4/5. The intradiscal fusion at L3/4 and L3 pedicle screw are new compared to the previous exam of 11/14/2021. Bone marrow signal/fracture: No evidence of pathologic marrow infiltration. No evidence of prior fracture. Conus: The conus is within normal limits of signal intensity and morphology. The conus terminates normally at L1. Paraspinal soft tissues: Paraspinal soft tissues are unremarkable. Lower thoracic spine: Visualized lower thoracic canal and foramina are patent. L1-L2: There are bilateral degenerative facet changes and thickened ligaments posteriorly.. Mild central canal narrowing. Foramina is patent. L2-L3: Broad-based disc bulging. Bilateral degenerative facet change. Mild central canal and mild bilateral foraminal compromise. L3-L4: There are bilateral pedicle screws within the L3 and L4 vertebral bodies and an intradiscal spacer/fusion device. The dimensions of the central canal and foramina appear adequate. The dimensions of the central canal are significantly improved when compared to the preoperative study of 11/14/2021. L4-L5: Bilateral pedicle screws within the L4 and L5 vertebral bodies. Evidence of an intradiscal spacer/fusion device. There is a right paracentral bony osteophyte complex associated with mild posterior lateral displacement of intradiscal spacer on the right that produces a mild indentation on the anterior aspect of the thecal sac. This is more prominent than on the previous examination. No obvious neural compromise. Canal and foramina are patent. L5-S1: There are bilateral pedicle screws in the L5 and S1 vertebral bodies. There is degenerative facet change. There is moderate right subarticular and foraminal compromise. Canal left foramina are patent. Sacrum and iliac wings: Visible sacrum and iliac wings are normal. Presacral soft tissues within normal limits. Procedure Note Mervin Scott MD - 01/23/2025 HISTORY: Low back pain history of previous lumbar surgery COMPARISON: 11/14/2021 EXAMINATION: Routine lumbosacral spine protocol without gadolinium. RESULTS: Counting reference: Lumbosacral junction. For the purposes of thisreport, L4/5 is considered the level of the iliac crest and L5 is the lastlumbar like vertebral body. Alignment: There is a mild levoscoliosis. There is evidence of a laminectomy L3-L5/S1. There are bilateral pediclescrews noted from L3 through S1 and evidence of intradiscal spacers/fusiondevices at L3/4 and L4/5. The intradiscal fusion at L3/4 and L3 pediclescrew are new compared to the previous exam of 11/14/2021. Bone marrow signal/fracture: No evidence of pathologic marrowinfiltration. No evidence of prior fracture. Conus: The conus is within normal limits of signal intensity andmorphology. The conus terminates normally at L1. Paraspinal soft tissues: Paraspinal soft tissues are unremarkable. Lower thoracic spine: Visualized lower thoracic canal and foramina arepatent. L1-L2: There are bilateral degenerative facet changes and thickenedligaments posteriorly.. Mild central canal narrowing. Foramina ispatent. L2-L3: Broad-based disc bulging. Bilateral degenerative facet change.Mild central canal and mild bilateral foraminal compromise. L3-L4: There are bilateral pedicle screws within the L3 and S6bkdmojfit bodies and an intradiscal spacer/fusion device. The dimensionsof the central canal and foramina appear adequate. The dimensions of thecentral canal are significantly improved when compared to the preoperative study of 11/14/2021. L4-L5: Bilateral pedicle screws within the L4 and L5 vertebral bodies.Evidence of an intradiscal spacer/fusion device. There is a rightparacentral bony osteophyte complex associated with mild posterior lateraldisplacement of intradiscal spacer on the right that produces a mild indentation on the anterior aspect of thethecal sac. This is more prominent than on the previous examination. Noobvious neural compromise. Canal and foramina are patent. L5-S1: There are bilateral pedicle screws in the L5 and S1 vertebralbodies. There is degenerative facet change. There is moderate rightsubarticular and foraminal compromise. Canal left foramina are patent. Sacrum and iliac wings: Visible sacrum and iliac wings are normal.Presacral soft tissues within normal limits. IMPRESSION: 1. Since the previous examination, patient is status post instrumentedfusion at L3/4. The dimensions of the central canal are significantlyimproved when compared to the preoperative study. 2. There is mild posterior displacement of the intradiscal spacer deviceat L4/5 in a right paracentral location. There is no obvious direct neuralcompromise. 3. Multilevel degenerative disc, bone and facet changes as describedabove. Surgical changes at L5/S1 and right subarticular zone and foraminalcompromise are similar to the previous examination. Electronically signed by: Mervin Scott MD 01/23/2025 06:52 PM EDT RPWorkstation: [id number] Thank you for referring your patient to us, Mervin Scott M.D. [id number] (Electronically Signed - 01/23/2025 18:52) Copy: PATIENT , us Erich Wilson MD IM MRI ORDERABLES Final Result * XR Hips w pelvis 3 or 4 views-Bilateral (01/10/2025 10:45 AM EDT) Narrative [facility] - 01/10/2025 10:45 AM EDT This exam was performed in office at [facility] and images reviewed by orthopedic provider. Any findings are documented within ambulatory encounter note on date of service. us Erich [facility] OR DERABLES Final Result Performing Organization Address [facility] de Phone Number OAH * XR Lumbar spine complete 4+ views (01/10/2025 10:45 AM EDT) Narrative [facility] - 01/10/2025 10:45 AM EDT [facility] provider. Any findings are documented within ambulatory encounter note on date of service. us Erich [facility] OR DERABLES Final Result Performing Organization Address [facility] Co de Phone Number OAH * XR Cervical spine 4 or 5 views (01/10/2025 10:45 AM EDT) Narrative [facility] - 01/10/2025 10:45 AM EDT This exam was performed in office at [facility] and images reviewed by orthopedic provider. Any findings are documented within ambulatory encounter note on date of service. Erich Wilson MD [facility] OR DERABLES Final Result [facility] from Last 3 Months Insurance [facility] [employer] Member Subscriber Plan / Payer (Ef fective 2019-Present) Name:Antione Hernandezia P Relation to Subscriber:Self Name:Antione Hernandezia P Payer ID:[id number] (NAIC) Type:Not on file Address: [place] [phone] [facility] Member Subscriber Plan / Payer (Ef fective 2019-Present) Name:Antione Hernandezia P Relation to Subscriber:Self Name:Antione Hernandezia P Payer ID:[id number] (NAIC) Type:Not on file Address: [place] [phone] [facility] [id number] Advance Directives * Full Code (Latest Code Status on File) Date Activated Date Inactivated Comments 01/24/2022 2:02 PM * Full Code Date Activated Date Inactivated Comments 01/24/2022 5:38 AM 01/24/2022 2:02 PM * Full Code Date Activated Date Inactivated Comments 12/14/2019 6:26 PM 01/24/2022 5:36 AM * Full Code Date Activated Date Inactivated Comments 12/14/2019 10:07 AM 12/14/2019 6:26 PM Healthcare Agents on File Name Relationship Healthcare Agent Relationsnv p Communication Jen Torres Adult child 4. Next of Kin ( Spouse, Adult Child, Parent, Adult Sibling, Grandparent) [email or web address] Mervin Hernandezte Adult child 4. Next of Kin ( Spouse, Adult Child, Parent, Adult Sibling, Grandparent) .[employer] Care Teams Health Information Managers Relationship Specialty Start Date End Date Mervin Vargas MD [address] [place], [place] [phone] PCP - General Internal Medicine 01/01/22 Erich Wilson MD [address] [place] [address] Physical Medicine and Rehabilitation 08/12/19 Luan Jones MD [address] [place] [address] Surgery, Orthopedic 10/26/19
== END 2025-03-21 14:42 | disposition home or self-care (01) ==
LOC: HO.HNS 13:42
PROVIDERS: PCP Family Medicine; Visit Provider Physician Assistant
DX: M54.50 Low back pain, unspecified (principal)
CPT/HCPCS: 99204

== ENCOUNTER → 2025-03-21 14:48 | Outpatient (BNV) | payer OTHER, SELFPAY | PROVIDERS: PCP Family Medicine; Visit Provider Radiology Diagnostic Radiology | DX: M41.86 Other forms of scoliosis, lumbar region (principal); Z98.1 Arthrodesis status | CPT/HCPCS: 72110 ==